=== PATIENT | male | born 1955 | race Caucasian/White ===

== ENCOUNTER 2017-01-19 09:59 | Emergency (ER) | payer MEDICARE, MEDICAID ==
[~2017-01-19 09:59] MED LIST: ASA325 MG PO; AUGMENTIN XR1 GM PO; AUGMENTIN875 MG PO; CYMBALTA60 MG PO; DELTASONE DPS1 MG PO; DIFLUCAN DPS200 MG PO; DUONEB DPS3 ML IH; DURAGESIC50 MCG TD; ELAVIL-DPS50 MG PO; FENTANYL TP; FLEXERIL-DPS10 MG PO; FLORINEF0.1 MG PO; FUROSEMIDE20 MG PO; GLUCAGON1 MG/ML IM; GLUCOPHAGE-DPS500 MG PO; GLUTOSE 1537.5 GM PO; HABITROL DPS21 MG TD; HUMALOG100 UNIT/1 SQ; HYDROCORTISONE20 MG PO; INVOKANA100 MG PO; KCL 10 MEQ PO; KEFLEX-DPS500 MG PO; KLOR-CON M2020 ME1 PO; LEVAQUIN DPS750 MG PO; LEVEMIR100 UNIT/1 SQ; LISINOPRIL10 MG PO; LOMOTIL-DPS1 TAB PO; LOPRESSOR DPS50 MG PO; LYRICA100 MG PO; MAALOX DPS30 ML PO; MAG OXIDE PO; METOPROLOL SUC100 MG PO; MOTRIN-DPS800 MG PO; MUCINEX600 MG PO; MULTIVITAMINS1 EAC1 PO; MYCOSTATIN PWD15 GM TP; NEURONTIN DPS300 MG PO; NITROSTAT0.4 MG SL; NOVOLOG100 UNIT/2 SQ; OMEPRAZOLE40 MG PO; PEPCID20 MG PO; PERCOCET 7.5-31 EACH PO; PROTONIX40 MG PO; Q-DRYL25 MG PO; QUETIAPINE PO; SEROQUEL25 MG PO; SEROQUEL50 MG PO; SURFAK DPS240 MG PO; THERAPEUTIC MUL1 TAB PO; TOUJEO SOL300 UNIT/1 SQ; VALIUM5 MG PO; VICTOZA 2-0.6 MG/0.1 SQ; VOLTAREN 1% GE100 GM TP; XARELTO15 MG PO; XARELTO20 MG PO; ZOHYDRO ER30 M1 PO
--- NOTE | 2017-01-22 09:10 | ER ---
ADMIT: 01/19/2017 RM/LOC: ER [facility] [place] MR#: [id number] [id number] [place], [place] [id number] ALEKSANDR JAMES [address] [place] [id number] Emergency Room Report SEX: M AGE: 61 : 1955 DATE: 01/19/2017 Patient is a 61-year-old, wheelchair bound, complaining of right hip pain. He said he fell and he states he is out of his chronic pain medications and he contacted the office this morning about Dr. Vela and he was told to come to the ER to get evaluated for his fall. He has quite an interesting past medical history and includes chronic pain. MEDICATIONS: Multiple that he uses includin. Xarelto. 2. Fentanyl. 3. Percocet. PHYSICAL EXAMINATION: GENERAL: Wheelchair bound male. VITAL SIGNS: Blood pressure 162/64, heart rate is 110, respirations 16, temp is 98, and O2 sats 96%. EXTREMITIES: On examination, tenderness on the right lateral aspect of his hip. Physical examination is within normal limits. No other issues reported. X-ray of his right hip and pelvis show degenerative changes, and if there is any clinical concern for a fracture, a recommendation of an MRI is there. I contacted Dr. Vela at 12:20 and he advises to get that MRI set up through the office for Mr. James and for him to slate picker his prescriptions at the office as they have been written for him. CLINICAL IMPRESSION: Pelvic contusion, right hip pain, out of chronic pain medication. The patient was given ketorolac for pain relief while in the emergency room. Discharged. MARCO Flores / Dima Godoy MD / jannette JOB #: [id number] CC: Dima Godoy MD, Attending Physician Blaine Vela MD, Family Physician
== END 2017-01-19 12:43 | disposition home or self-care (01) ==
LOC: ER 09:59
DX: S30.0XXA Contusion of lower back and pelvis, initial encounter (principal); M25.551 Pain in right hip; Z76.0 Encounter for issue of repeat prescription; Z79.01 Long term (current) use of anticoagulants; Z79.891 Long term (current) use of opiate analgesic; W19.XXXA Unspecified fall, initial encounter

== ENCOUNTER → 2017-01-23 | Outpatient (CLI) | payer MEDICARE, MEDICAID | END | disposition home or self-care (01) | LOC: RAD.S 01-19 13:42 | DX: T14.90 Injury, unspecified (principal); W19.XXXA Unspecified fall, initial encounter ==

== ENCOUNTER 2017-01-27 03:06 | Emergency (ER) | payer MEDICARE, MEDICAID ==
--- NOTE | 2017-01-30 11:58 | ER ---
ADMIT: 01/27/2017 RM/LOC: ER [facility] MR#: [id number] [address] [id number] CANBYALEKSANDR [address] [place] [id number] Emergency Room Report SEX: M AGE: 61 : 1955 DATE: 01/27/2017 The patient is a 61-year-old male with a past medical history of COPD, diabetes, increasing syndrome and chronic back pain who came to the ER with chief complaint of right hip pain. Allegedly, 3 weeks ago, the patient had ground level fall. After that he was walking with some pain in the right hip and has been followed up by Dr. Vela. The patient even had a pelvic MRI, which I looked at the report per Radiology and they could not see any acute changes or fractures in the right hip. The patient states he ran out of the Percocet that he used to take for the right hip pain and the patient has been discharged the previous day with a right hip contusion. The patient denies any new trauma or weaknesses or numbness, tingling. The patient also denies any pain in the knees. In the ER, the patient was ambulating just with a wheelchair first, but can do range of motion actively and passively without difficulty, and was not in acute distress, I did not see any signs of acute new trauma, normal peripheral pulses, and normal motor and sensory grossly. The rest of the physical exam is noncontributory. The patient received Percocet in the ER and was discharged with a prescription for a small number of Percocet for just 1 or 2 days until he follows up with the primary doctor. The patient was advised to use the pain killers just if he has breakthrough pain. The patient was discharged to home with diagnosis of right hip pain. Seng Taylor MD/ jannette JOB #: [id number] CC: Seng Taylor MD, Attending Physician Blaine Vela MD, Family Physician
== END 2017-01-27 04:07 | disposition home or self-care (01) ==
LOC: ER 03:06
DX: S70.01XD Contusion of right hip, subsequent encounter (principal); E11.9 Type 2 diabetes mellitus without complications; F17.210 Nicotine dependence, cigarettes, uncomplicated; Z79.899 Other long term (current) drug therapy; Z79.82 Long term (current) use of aspirin; Z79.4 Long term (current) use of insulin; W18.30XD Fall on same level, unspecified, subsequent encounter